=== PATIENT | female | born 1950 | race Two or more races ===

== ENCOUNTER 2024-02-02 20:11 | Emergency (ER) | payer MEDICARE, OTHER ==
[~2024-02-02] VITALS: Ht 162.6 cm; Wt 88.0 kg
[2024-02-02 20:37] VITALS: BP 173/93; PULSE 60; RESP 18; O2SAT 98
== END 2024-02-02 21:23 | disposition left against medical advice (07) ==
LOC: EDBD 20:11 → ER 20:11
DX: R10.9 Unspecified abdominal pain (principal); Z53.21 Procedure and treatment not carried out due to patient leaving prior to being seen by health care provider
CPT/HCPCS: 93005